=== PATIENT | male | born 1955 | race Caucasian/White ===

== ENCOUNTER 2022-05-03 10:10 | Outpatient (CLI) | payer MEDICARE, SELFPAY ==
--- NOTE | ~2022-05-03 | XR_ITS ---
EXAMINATION: XR foot RT min 3V DATE: 05/03/2022 10:28 INDICATION: Right foot pain TECHNIQUE: Dorsoplantar, lateral, and 2 oblique views of the right foot were obtained. COMPARISON: None. FINDINGS: Bone alignment is normal. There is no acute fracture. An exostosis projects from the medial aspect of the first metatarsal. There is moderate osteoarthritis of multiple interphalangeal joints. The soft tissues are unremarkable. IMPRESSION: 1. Polyarticular osteoarthritis without acute osseous abnormality. Reviewed, dictated and finalized at location B.
== END 2022-05-03 10:11 ==
PROVIDERS: PCP Nurse Practitioner Family; Visit Provider Nurse Practitioner Family
DX: M79.671 Pain in right foot (principal); M19.071 Primary osteoarthritis, right ankle and foot
CPT/HCPCS: 73630

== ENCOUNTER 2023-05-16 16:26 | Outpatient (CLI) | payer MEDICARE, SELFPAY ==
--- NOTE | ~2023-05-16 | US_ITS ---
EXAMINATION: US venous doppler [facility] DATE: 05/16/2023 18:21 INDICATION: Left lower limb swelling. TECHNIQUE: Grayscale ultrasound images without and with compression and Doppler ultrasound images of the left lower extremity veins were obtained. COMPARISON: None. FINDINGS: The visualized portions of left common femoral vein, profunda (deep) femoral vein, femoral vein, popl iteal vein, peroneal veins, posterior tibial veins, and greater saphenous vein outflow are patent. IMPRESSION: 1. No deep venous thrombosis. Reviewed, dictated and finalized at location E.
== END 2023-05-16 16:27 | disposition home or self-care (01) ==
PROVIDERS: PCP Nurse Practitioner Family; Visit Provider Orthopaedic Surgery
DX: R60.0 Localized edema (principal)
CPT/HCPCS: 93971

== ENCOUNTER 2024-04-07 14:22 | Outpatient (CLI) | payer MEDICARE, SELFPAY ==
--- NOTE | 2024-04-07 14:44 | ECG_ITS ---
Test Date: 2024-04-07 14:51:34 Measurements Intervals [place] Rate: 74 P: 61 VA: 297 QRS: -80 QRSD: 154 T: 30 QT: 405 QTc: 451 Interpretive Statements SINUS RHYTHM WITH FIRST DEGREE AV BLOCK RIGHT BUNDLE BRANCH BLOCK LEFT ANTERIOR FASCICULAR BLOCK BASELINE ARTIFACT- I, II, III, AVR, V4-V6 ABNORMAL ECG No previous ECG available for comparison Electronically Signed On 04-07-2024 15:06:32 CDT by Augustus Oropeza D.O.
== END 2024-04-07 14:23 | disposition home or self-care (01) ==
LOC: ANHSURGERY 14:27
PROVIDERS: PCP Family Medicine; Visit Provider Orthopaedic Surgery
DX: I10 Essential (primary) hypertension (principal); Z01.818 Encounter for other preprocedural examination; I44.0 Atrioventricular block, first degree; I44.4 Left anterior fascicular block
CPT/HCPCS: 93005

== ENCOUNTER 2024-04-09 01:06 | Day surgery (SDC) | payer MEDICARE, SELFPAY ==
--- NOTE | 2024-04-06 15:57 | PC.NURSE ---
Report to the Outpatient Waiting Room, entrance under the green pavilion located off [facility], at time _9:30 AM on date _04/09/24 . Planned Procedure Time: __11:30 AM . Time changes happen often and if your time is changed the preop area will call you the afternoon before. - You and your visitor will be asked to self-screen and do not enter if you have any COVID symptoms. - A mask is optional within the hospital at this time. Patients may have clear liquids (water, carbonated beverages, clear teas, apple juice) until 3 hours prior to surgery(8:30 AM) with a maximum of 20 ounces. - No food from midnight until time of surgery - Infants may have breast milk until 4 hours before surgery, infant formula 6 hours prior to surgery. - Children will be allowed to drink immediately following surgery. If applicable, please bring a bottle or sippy cup to assist with drinking. Juice, water, soda, and popsicles are readily available. For infants on formula, please bring formula the day of surgery. Pacifiers are allowed. Take the following medications with a SIP of water the morning of surgery: __METOPROLOL, DO NOT STOP ANY OF YOUR OTHER PRESCRIPTION MEDICATIONS PRIOR TO SURGERY ?EXCEPT THE FOLLOWING Medications to discontinue per physician HOLD ALL VITAMINS AND SUPPLEMENTS 3 DAYS PRE OP .LAST DOSE 04/06/24 Please no make-up, nail bermudian, hairspray, perfume, deodorant, or body powder the day of surgery. No jewelry (including any body piercings) or valuables the day of surgery, leave them at home. Please take a shower or bath the night before, or the morning of, surgery with an antibacterial soap. Wear comfortable, loose fitting clothing. Children are encouraged to wear pajamas. - Jewelry must be removed prior to entering the operating room. Rings and piercings that are not removed may be cut off. - The hospital will not accept responsibility for valuables. - Please leave all valuables, including medications, at home the day of surgery. If you are going home after surgery, a licensed emt driver must drive you home. - NO public transportation without another adult if you receive anesthesia. - We recommend that an adult stay with you for 24 hours following discharge. - We also recommend that you do not drive, make important decision, drink alcoholic beverages, or take any drugs that were not prescribed by your health care provider for at least 24 hours after your discharge time. For Pediatric surgeries, we recommend two adults accompany the child home. Follow any additional instructions given to you from your surgeon. If you or anyone in your household have experienced Covid symptoms in the past week, please notify your surgeon or the nurse liaison at the phone number below for possible testing. Telephone instructions given to __PATIENT and asked if any additional questions and then verbalized understanding. Patient advised to call surgeon office or pre surgery nurse liaison [phone] if any additional questions.
[2024-04-06 16:10] VITALS: BMI 28.1
[2024-04-09] VITALS (7 sets, daily range): BP systolic 120–135; BP diastolic 63–78; PULSE 50–81; RESP 12–18; TEMP 36.2–36.4; O2SAT 97–100
--- NOTE | ~2024-04-09 | XR_ITS ---
EXAMINATION: XR surgery orthopedic DATE: 04/09/2024 12:10 INDICATION: Left hip screw removal TECHNIQUE: 3 fluoroscopic images of the left hip were obtained during procedure performed by Dr. Inés rodriguez. Radiologist was not present for the imaging or procedure. The amount of fluoroscopy time used du ring this procedure was 0.4 minutes. COMPARISON: None. FINDINGS/IMPRESSION: Lucent screw tract from removal of the more cephalad of a pair of femoral neck s crews extending across an antegrade intramedullary naa for fixation of an old healed intratrochanteri c fracture of the proximal left femur. Reviewed, dictated and finalized at location A.
--- NOTE | 2024-04-09 07:10 | PM.IMHP ---
H&P: HPI History of Present Illness Date/Time: 04/09/24 07:10 Chief Complaint: Painful hardware left hip Narrative: 68-year-old male who underwent ORIF of his left intertrochanteric hip fracture in April 2023, he had delayed union. He also had some collapse at the fracture area, because of the collapse the dynamic hip screw as well as the anti rotation screw has become prominent. Patient is having symptoms of snapping and catching in the hip from the hardware. Patient's last x-rays in generalized show the fracture to be united. Removal of the painful was discussed patient would like to proceed with that. Review of Systems Review of Systems: All systems reviewed & are unremarkable except as noted in HPI and below PMFSH Past Medical History Medical History Arthritis BMI 25.0-25.9,adult BMI 27.0-27.9,adult Closed fracture of left hip requiring operative repair Headache, migraine Syncope Surgical History Surgical History History of hernia repair History of nasal surgery Family History Family History (Updated 03/30/24 @ 13:34 by LINDA Jesus) Sibling Family history of pancreatic cancer Mother Family history of heart disease in male family member before age 55, Onset Age: 70 Father Family history of heart disease in male family member before age 55 Family history of cardiovascular disease Social History Social History (Updated 03/30/24 @ 13:36 by LINDA Jesus) Smoking packs per day: 3 Smoking cigarettes per day: 60.0 Years smoked: 52 Smoking pack-years: 156.00 Smoking status: Current every day smoker Tobacco type: cigarettes Second hand tobacco smoke exposure: Yes Alcohol intake: current Alcohol use details: rarely Substance use: former Substance use type: marijuana Do You Feel Safe in your Home?: Yes Lack of Transportation: No Lack of Food: Never True Current Housing: I Do Not Have Housing Concerned About Future Housing: No Difficulty Paying Gas/Electric Bills: No Difficulty Paying for Meds: No Currently Unemployed: No Education: Trade/Vocational Certificate Difficulty w/ Childcare or Family Care: No Living arrangements: alone Occupation/Education: retired 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[employer] Gender identity (if verbalized by the patient): Male Spiritual care concerns: No Meds Home Medications and Allergies Home Medications Medication Instructions Recorded Confirmed Type metoprolol succinate 25 mg See Rx Instructions .Route 11/13/23 04/06/24 Rx tablet,extended release 24 hr .COMPLEX #90 tabs rosuvastatin 20 mg tablet See Rx Instructions .Route 02/12/24 04/06/24 Rx .COMPLEX #90 tabs zolpidem 10 mg tablet (Ambien) 10 mg PO ONCE #30 tabs 02/18/24 04/06/24 Rx tizanidine 4 mg tablet 4 mg PO BID PRN muscle spasticity 03/23/24 04/06/24 Rx #90 tabs acetaminophen 650 mg 1,300 mg PO Q12H PRN Pain 04/06/24 04/06/24 History tablet,extended release multivitamin-iron (hematinic) 1 tablet PO DAILY 04/06/24 04/06/24 History Allergies Allergy/AdvReac Type Severity Reaction Status Date / Time codeine AdvReac Intermediate Jittery Verified 04/06/24 15:34 Exam Narrative: 68-year-old male alert pleasant. BMI is 28.1. He has no pain with flexion of the left hip to 120. with rotation there is a snapping sensation felt in the lateral hip. Incisions are well healed. Does complain of some numbness and tingling in the leg at times which is been determined that this is coming from his low back. He has swelling in lower extremities. No swelling in the thigh. Resp: Auscultation: clear to auscultation bilaterally Cardio: Rate: regular rate Rhythm: regular rhythm Assessment and Plan Assessment and plan (1) Painful orthopaedic hardware:
[2024-04-09] MEDS: ACETAMINOPHEN 500 MG TABLET 1000 MG PO (10:05)
[2024-04-09] MEDS: VANCOMYCIN 1,500 MG/NS 500 ML 1,500 MG/500 ML BAG 250 MG IVPB (10:10)
[2024-04-09] MEDS: KETOROLAC 15 MG/ML VIAL (*BKC) IV PUSH (10:10)
[2024-04-09] MEDS: LACTATED RINGERS 1,000 ML 30 ML IV CONT (10:10)
--- NOTE | 2024-04-09 10:49 | WPDHPUPDATE1 ---
History and Physical Update Update Date/Time: 04/09/24 10:49 History and Physical has been reviewed, including an updated exam of the patient. There are NO changes in the patient's condition. Risks, benefits, and alternatives have been discussed and questions answered. Patient agrees to proceed with procedure.
--- NOTE | 2024-04-09 10:51 | WPDANESEPPF ---
Anes - Initial Pre Proc Eval Procedure: Operation Date: 04/09/24 11:30 Proposed Procedures p Removal Two Left Hip Screws, Replacement of Lag Screw Left Hip - Constantin Dowell MD Date/Time: 04/09/24 10:51 Surgeon: Constantin Dowell MD Pre Op Diagnosis: Painful Hardware Left Hip Patient Data Age: 68 Gender: M Height: 1.91 m Weight: 93.2 kg Last Vital Signs Temp 97.2 F L 04/09/24 09:45 Pulse 71 04/09/24 09:45 Resp 18 04/09/24 09:45 BP 124/72 04/09/24 09:45 Pulse Ox 97 04/09/24 09:45 O2 Del Method Room Air 04/09/24 09:45 Allergies Allergy/AdvReac Type Severity Reaction Status Date / Time codeine AdvReac Intermediate Jittery Verified 04/09/24 09:49 Home Medications Medication Instructions Recorded Confirmed Type metoprolol succinate 25 mg See Rx Instructions .Route 11/13/23 04/09/24 Rx tablet,extended release 24 hr .COMPLEX #90 tabs rosuvastatin 20 mg tablet See Rx Instructions .Route 02/12/24 04/09/24 Rx .COMPLEX #90 tabs zolpidem 10 mg tablet (Ambien) 10 mg PO ONCE #30 tabs 02/18/24 04/09/24 Rx tizanidine 4 mg tablet 4 mg PO BID PRN muscle spasticity 03/23/24 04/09/24 Rx #90 tabs acetaminophen 650 mg 1,300 mg PO Q12H PRN Pain 04/06/24 04/09/24 History tablet,extended release multivitamin-iron (hematinic) 1 tablet PO DAILY 04/06/24 04/09/24 History Patient hx anesthesia problems: none Family hx anesthesia problems: none Results Review: All pre-operative results and documents have been reviewed as part of the pre-operative evaluation. [facility] Past Medical History Medical History Arthritis BMI 25.0-25.9,adult BMI 27.0-27.9,adult Closed fracture of left hip requiring operative repair Headache, migraine Syncope Surgical History Surgical History History of hernia repair History of nasal surgery Family History Family History (Updated 03/30/24 @ 13:34 by LINDA Jesus) Sibling Family history of pancreatic cancer Mother Family history of heart disease in male family member before age 55, Onset Age: 70 Father Family history of heart disease in male family member before age 55 Family history of cardiovascular disease Social History Social History (Updated 03/30/24 @ 13:36 by LINDA Jesus) Smoking packs per day: 3 Smoking cigarettes per day: 60.0 Years smoked: 52 Smoking pack-years: 156.00 Smoking status: Current every day smoker Tobacco type: cigarettes Second hand tobacco smoke exposure: Yes Alcohol intake: current Alcohol use details: rarely Substance use: former Substance use type: marijuana Do You Feel Safe in your Home?: Yes Lack of Transportation: No Lack of Food: Never True Current Housing: I Do Not Have Housing Concerned About Future Housing: No Difficulty Paying Gas/Electric Bills: No Difficulty Paying for Meds: No Currently Unemployed: No Education: Trade/Vocational Certificate Difficulty w/ Childcare or Family Care: No Living arrangements: alone Occupation/Education: retired 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 Informed Consent: The patient's anesthetic plan and its attendant risks and benefits were discussed with the patient/f
[2024-04-09] MEDS: ceFAZolin 2 GM/D5W 50 ML 2 GM/50 ML BAG IVPB (11:01)
[2024-04-09] MEDS: ceFAZolin SODIUM 1 GM VIAL (11:38)
[2024-04-09] MEDS: ceFAZolin SODIUM 1 GM VIAL IV PUSH (12:00)
--- NOTE | 2024-04-09 12:28 | P.OP_ITS ---
Procedure Note - Detailed Date of Procedure 04/09/24 Pre-op Diagnosis Painful Hardware Left Hip Post-op Diagnosis Same Procedure Performed Removal telescoping lag screw and anti-rotational screw from proximal aspect of trochanteric nail construct and replacement of lag screw with shorter screw. Surgeon Constantin Dowell MD [employer] Coordinator [place] Anesthesia General Description of Procedure Patient was brought to the operating room and general anesthesia was administered. He received weight based vancomycin 2 g of Ancef preoperatively. The patient was transferred to the fracture table the right hip flexed abducted all the way in the left foot placed in the special boot and the left hip prepped draped usual fashion. The previous 1/2 inch incision over the lateral aspect of the proximal thigh was utilized. We incised through the skin and I could feel the ends of the screws. Cautery was used to clean soft tissue off the surface of the anti rotation screw which was backed out without difficulty. Soft tissue was cleared over the end of the telescoping lag screw. We threaded the core pin and over this placed the unlocking T-handle device. Locking mechanism was turned clockwise 1/2 turn and then counter-clockwise and it backed out without difficulty. A guide pin was inserted across the fracture in the previous screw track and we measured for a new shorter telescoping lag screw. Previous screw was a 110 we chose a 90 and this was inserted such that the and the screw was not protruding from the lateral cortex so it would not be able to cause irritation. The locking sleeve was engaged and the telescoping activator screw removed without difficulty. Wound was irrigated with antibiotic solution closed with 1. Deep sutures skin closed with 2 subcutaneous Vicryl and glue EBL was 10 cc. 30 g Ancef given time wound closure. There were no complications. I did not see evidence of movement or fracture line developing after removal of the screw. [facility] Billing Surgery - Charge Forward: Surgery Billing (Hardware removal, removing 2 screws left hip (replacement of shorter lag screw left hip))
== END 2024-04-09 13:55 | disposition home or self-care (01) ==
PROVIDERS: PCP Family Medicine; Visit Provider Orthopaedic Surgery
PROC: (CPT 20680; principal; 2024-04-09 11:30)
DX: T84.84XA Pain due to internal orthopedic prosthetic devices, implants and grafts, initial encounter (principal); Y83.8 Other surgical procedures as the cause of abnormal reaction of the patient, or of later complication, without mention of misadventure at the time of the procedure; F17.210 Nicotine dependence, cigarettes, uncomplicated; F12.90 Cannabis use, unspecified, uncomplicated; Z98.890 Other specified postprocedural states; Z80.0 Family history of malignant neoplasm of digestive organs; Z82.49 Family history of ischemic heart disease and other diseases of the circulatory system
CPT/HCPCS: 20680; 93005; 99199; A9270; J0690; J1100; J1596; J1885; J2250; J2704; J3010; J3370; J7120